=== PATIENT | female | born 1950 | race African-American/Black ===

== ENCOUNTER → 2017-04-29 | Outpatient (CLI) | payer MEDICARE, BC ==
--- NOTE | ~2017-04-29 | MR3 ---
[facility] A Service of [facility] RADIOLOGY TEXT RESULTS PATIENT: EM GOODWIN [facility] UNIT #: [id number] AGE: [address]: Silver Quinones MD SEX: F ORDER DR: [id number] [facility] [address] [place], [place] [address] [id number] O MR#: [id number] Acc #: [id number] NAME: EM GOODWIN : 1950 SEX: F STUDY DATE/TIME: 04/29/2017 18:33 UNIT: [facility] ROOM: STUDY DESCRIPTION: MR Abdomen Wo Contrast Attending Physician: Silver Quinones M.D. Referring Physician: Silver Quinones M.D. Ordering Physician: Silver Quinones M.D. Primary Care Physician: Elizabeth Jacobs M.D. MRI CENTER REPORT This report is preliminary unless electronic signature is present. EXAM MRI abdomen without contrast, 04/29/2017. HISTORY 67-year-old female with complaints of frequent urination, microscopic hematuria, chronic urinary tract infections for [address] documented the presence of complex cystic lesion for which additional MRI abdomen without and with contrast followup was recommended. Additional history of diabetes, hypertension, and benign left adrenal lesion. COMPARISON CT abdomen and pelvis without IV contrast performed at [facility], 10/21/2012. PROCEDURE Multiplanar, multisequence images were obtained of the abdomen without contrast. 2 separate attempts were made at obtaining IV access without success, after which time the patient refused additional attempts. IV contrast cannot be administered for this examination. FINDINGS T2 hyperintense, T1 hypointense lesion is seen within the left upper renal pole. On today's examination, it measures 4.5 x 4.6 x 4.3 cm. On the previous examination, it measuring 2.6 x 3.9 x 4.4 cm, suggesting slight interval enlargement. Thin internal septations are seen within it. No discrete soft tissue nodular components are identified within it, although the study is somewhat limited due to lack of IV contrast. 6-mm faintly T2 hyperintense, T1 hypointense lesion of the left lower renal pole is noted, unchanged in size from prior examination, favored to represent a cyst. 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 No hydronephrosis is seen within either kidney. [facility] A Service of [facility] RADIOLOGY TEXT RESULTS PATIENT: EM GOODWIN LOCATION: [facility] : 50 UNIT #: [id number] AGE: [address]: Silver Quinones MD SEX: F ORDER DR: There is an abnormal macronodular surface contour of the liver, with hypertrophy of the left hepatic lobe, in keeping with the appearance of cirrhosis. No discrete focal liver lesion is identified on today's noncontrasted study. The spleen is not enlarged. No ascites is seen. Gallbladder is contracted. No abnormal intrahepatic or extrahepatic biliary ductal dilation is seen. The spleen, pancreas, and right adrenal gland have a normal noncontrasted appearance. 1.7 x 1.4 cm left adrenal nodule demonstrates signal drop on [id number] imaging in keeping with an adenoma. No suspicious pathologic adenopathy is identified. IMPRESSION 1. Mildly complex cystic lesion in the left upper renal pole measures slightly larger than on the outside CT from 2012. It contains some thin internal septations. No discrete internal nodularity is identified, but evaluation is somewhat limited due to lack of IV contrast. Nonetheless, it is favored to most likely represent a benign finding. Continued sonographic or CT/MRI followup would be recommended. Certainly, if the patient cannot tolerate IV contrast, surveillance imaging would be warranted to document any significant changes in overall size or morphology. 2. Benign left adrenal adenoma. 3. Hepatic cirrhosis. Dictated by... Rayne Richard M.D. THIS IS AN ELECTRONICALLY VERIFIED REPORT Rayne Richard M.D. at 05/03/2017 9:34 PM Syeda TD: 05/01/2017 15:49 JOB #: [id number] MRI CENTER REPORT Page 1 of 1 COPY
[2017-04-29 18:06] LABS: POC - CREATININE 1.58 mg/dL (0.44-1.03)
== END | disposition home or self-care (01) ==
LOC: CMRI 17:36
PROVIDERS: Urology
DX: D35.02 Benign neoplasm of left adrenal gland (principal); N28.1 Cyst of kidney, acquired; K74.60 Unspecified cirrhosis of liver
CPT/HCPCS: 74181; 82565